=== PATIENT | female | born 1980 | race Caucasian/White ===

== ENCOUNTER 2016-08-23 20:36 | Emergency (ER) | payer MEDICAID, OTHER ==
[~2016-08-23] VITALS: Ht 162.6 cm; Wt 70.0 kg
[~2016-08-23 20:36] MED LIST: Z.0.NO CURRENT MEDS
[2016-08-23 20:37] VITALS: BP 134/71; PULSE 79; RESP 18; TEMP 99.2; O2SAT 97
[2016-08-23] MEDS ORDERED: MOME17I EACH NARE (21:55)
[2016-08-23] MEDS ORDERED: ALLE12TA2 PO (21:55)
[2016-08-23] MEDS ORDERED: IBUPROFEN 600 MG TAB PO ONE (22:00)
--- NOTE | 2016-08-23 22:00 | PD ---
HPI Chief Complaint: Cold / Flu Symptoms Time Seen by Provider: 21:55 Travel History International Travel<30 days: No Contact w/Intl Traveler<30days: No Traveled to known affect area: No History of Present Illness HPI 36-year-old white female presents to emergency department with three-day history of sinus congestion. She states that she's been sick now for 3 days. Her symptoms have included headaches, subjective fever, earaches, sore throat, cough, congestion, myalgias, neck pain and general malaise. She states that she has felt warm but has not documented a fever. She denies any shortness of breath or wheezing. No nausea vomiting. No abdominal pain or diarrhea. No dysuria or frequency. She has taken Sudafed [id number] without relief. She did not get the flu shot this year. [facility] Past Medical History Medical History: Denies Significant Hx Diminished Hearing: No Tetanus Vaccination: < 5 Years ?: Not LMP: 3 WKS AGO Past Surgical History Surgical History: No Previous Surgery Social History Alcohol Use: No Tobacco Use: No Substance Use: No Allergies-Medications (Allergen,Severity, Reaction): Coded Allergies: Ceclor (Verified Allergy, Severe, 08/23/16) Septra (Verified Allergy, Severe, 08/23/16) Morphine (Verified Allergy, Intermediate, PURITIS, N/V, 08/23/16) Reported Meds & Prescriptions Reported Meds & Active Scripts Active Reported No Current Meds (Miscellaneous Medication) [facility] Review of Systems Except as stated in HPI: all other systems reviewed are Neg Physical Exam Narrative GENERAL: Well-developed, well-nourished in no acute distress. Nontoxic appearing. HEAD: Normocephalic, atraumatic. EYES: Pupils equal round and reactive. Extraocular motions intact. No scleral icterus. No injection or drainage. ENT: TMs clear without erythema. The external auditory canals clear. Nose: clear . Posterior pharynx is pink and moist. No tonsillar edema or exudate. Uvula midline. Airway patent. NECK: Trachea midline.Supple, nontender, moves head freely. No central bony tenderness or spasm. CARDIOVASCULAR: Regular rate and rhythm without murmurs, gallops, or rubs. RESPIRATORY: Clear to auscultation. Breath sounds equal bilaterally. No wheezes , rales, or rhonchi. GASTROINTESTINAL: Abdomen soft, non-tender, nondistended. No hepato-splenomegaly , or palpable masses. No guarding. EXTREMITIES: No clubbing, cyanosis, or edema. No joint tenderness, effusion, or edema noted. BACK: Nontender without deformity or crepitance. No flank tenderness. Data Data Last Documented VS Vital Signs Date Time Temp Pulse Resp B/P Pulse Ox O2 Delivery O2 Flow Rate FiO2 08/23/16 20:37 99.2 79 18 134/71 97 Room Air Orders Ibuprofen (Motrin) (08/23/16 22:00) MDM Medical Decision Making Medical Screen Exam Complete: Yes Emergency Medical Condition: Yes Medical Record Reviewed: Yes Differential Diagnosis MDM: High Differential diagnoses: Pneumonia, bronchitis, URI, asthma, RAD, influenza Narrative Course Patient's given 600 mg of ibuprofen by mouth. Patient's exam is consistent with a viral URI. Diagnosis Primary Impression: Viral URI Patient Instructions: General Instructions Departure Forms: Tests/Procedures, Work Release Special Instructions: No work for the next 3-5 days. Additional Instructions: Rest. Increase fluids. Afrin nasal spray for the next 4 days. Maggie-D and Nasonex. 3 Advil every 6 hours as needed for fever and pain. Follow-up with a medical doctor in one week. Return to the ER if any problems or worsening. Med/Other Pt SpecificInfo: Prescription(s) given Scripts Mometasone Nasal [place] (Nasonex Nasal [place])50 Mcg/Act Naspr2 [place] EACH NARE DAILY #1 BOTTLE Ref 0 Prov:Socrates Knutson MD 08/23/16 Fexofenadine-Pseudoephedrine ER 12 HR (Maggie-D 12 Hour Allergy)60-120 Mg Taber1 Tab PO BID #30 TAB Ref 0 Prov:Socrates Knutson MD 08/23/16 Disposition: 01 DISCHARGE HOME Condition: Stable Jonas Miguel Aug 23, 2016 22:00
== END 2016-08-23 22:47 | disposition home or self-care (01) ==
LOC: NEPB 20:36
DX: J06.9 Acute upper respiratory infection, unspecified (principal)
CPT/HCPCS: 99283